=== PATIENT | male | born 1980 | race Caucasian/White ===

== ENCOUNTER 2017-07-01 17:54 | Observation (INO) | payer SELFPAY ==
[2017-07-01] MEDS ORDERED: Nitroglycerin 2% OINT* 1 GM PAK TOPICAL ONE (18:00)
[2017-07-01] MEDS ORDERED: Albuterol/Ipratropium NEB.SOL* Albuterol 2.5 MG/Ipratropium 0.5 MG 3 ML INH ONE (18:14)
[2017-07-01 18:32] LABS: Hematocrit 41 % (42-52); Hemoglobin 13.3 g/dl (14.0-18.0); Mean Corpuscular HGB Conc 33 g/dl (31-36); Mean Corpuscular Hemoglobin 28 pg (27-31); Mean Corpuscular Volume 85 fL (80-94); Mean Platelet Volume 8 um3 (7.4-10.4); Red Blood Count 4.81 10^6/ul (4.0-5.4); Red Cell Distribution Width 13 % (10.5-15); White Blood Count 13.4 10^3/ul (3.5-10.8)
[2017-07-01 18:45] LABS: Albumin 4.2 g/dL (3.2-5.2); BUN/Creatinine Ratio 16.9 (8-20); EGFR African American 148.7 (>60); EGFR Non-African American 115.6 (>60); Globulin 3.4 g/dL (2-4); Potassium 3.7 mmol/L (3.5-5.0); Total Bilirubin 0.4 mg/dL (0.2-1.0); Total Protein 7.6 g/dL (6.4-8.9)
[2017-07-01 18:46] LABS: Troponin I 0.01 ng/mL (<0.04)
--- NOTE | 2017-07-01 19:15 | RAD ---
INDICATION: Chest pain and leukocytosis COMPARISON: None TECHNIQUE: PA and lateral views of the chest were obtained. FINDINGS: The heart and mediastinum are normal in size and contour. The lungs are grossly clear. There is no evidence of large pleural effusion. Visualized bones are normal for the patient's age. There is no radiographic evidence of free air beneath the diaphragm IMPRESSION: No radiographic evidence of acute cardiopulmonary disease.
[2017-07-01] MEDS ORDERED: Ondansetron INJ* 2 MG/ML VIAL IV PRN (20:52)
[2017-07-01] MEDS ORDERED: Hydrochlorothiazide TAB* 25 MG PO ONE (20:54)
[2017-07-01] MEDS ORDERED: Nicotine Inhaler* 10 MG AMP INH PRN (20:55)
[2017-07-01] MEDS ORDERED: Nicotine PATCH 14 MG/24 HR* PATCH TRANSDERM ONE (20:55)
[2017-07-01] MEDS ORDERED: Nicotine Patch Removal NOTE FOLLOW UP SCH (21:00)
[2017-07-01] MEDS ORDERED: Enoxaparin(*) 40 MG/0.4 ML SYR SUBCUT SCH (21:00)
[2017-07-01] MEDS: Acetaminophen TAB* 325 MG PO PRN (22:08)
--- NOTE | 2017-07-01 22:42 | HP ---
ADMISSION HISTORY AND PHYSICAL: DATE OF ADMISSION: 07/01/17 PRIMARY CARE PROVIDER: None. HEALTHCARE PROXY: His girlfriend, Honey Linder. CODE STATUS: Full. SOURCE OF INFORMATION: History obtained from interview with the patient and review of past medical records. RELIABILITY: Good. CHIEF COMPLAINT: Shortness of breath, hypertension. HISTORY OF PRESENT ILLNESS: This is a 36-year-old man with past medical history of hypertension, which he has been recently following at home in the absence of any primary care provider who has been measuring his blood pressure at home, it is noted that systolics to be in the 170s. For this reason, he and his girlfriend have decided they would go to [facility] today for further evaluation. Prior to this at around 2 p.m. today while working on a hot water pump, he developed shortness of breath described as "hard to catch my breath" that lasted for approximately 1 to [address] to the hospital, he developed "quick sharp chest pain" that lasted for several seconds and then returned for several seconds. He states at its worse, it was approximately 4/10 and then resolved without intervention. He denied any nausea , vomiting, lightheadedness, although endorsed palpitations when he had the chest pain, which is described as nonpleuritic. The pain was left substernal, radiated down to lower chest wall. This is the first time he has experienced such symptoms. Upon arrival to [facility], he had an EKG, which was thought to represent an ST elevation NJ and was transferred from their institution to [facility] ED and was evaluated by Dr. Kenney, mobile pet groomer who did not think EKG represented an ST elevated myocardial infarction. Because of the patient's chest pain, ED asked hospitalist to consult. PAST MEDICAL HISTORY: High blood pressure, chronic lower back pain, left elbow fracture status post ORIF, previous diagnosis of ADHD, previous diagnosis of bipolar and depression, current tobacco abuse, and seasonal allergies. MEDICATIONS: No current medications. ALLERGIES: No known drug allergies. SOCIAL HISTORY: One-half pack per day for 18 years and has approximately 4 drinks of alcohol per year. Smokes marijuana 2 to 3 times per week. He is employed as a cook at [employer]. FAMILY HISTORY: Mother had an NJ at age 42 in addition to hypertension. Father with liver cancer. REVIEW OF SYSTEMS: As per HPI including episode of shortness of breath and fleeting chest pain associated with palpitations. Otherwise, all other systems negative. PHYSICAL EXAMINATION GENERAL: Lying flat in bed, interactive, pleasant, no apparent distress. VITAL SIGNS: In the emergency room, highest blood pressure measured 157/105, although he had a nitroglycerin ointment on, pulse 51 to 57, respiratory rate of 16, 97% on room air, T-max 97.9. HEENT: Oropharynx is clear. He has poor dentition. Moist mucous membranes. Sclerae are anicteric. NECK: He has non-elevated JVD. No supraclavicular or cervical lymphadenopathy. LUNGS: Have decreased breath sounds throughout with no adventitious lung sounds. HEART: Has regular rate and rhythm without murmurs, rubs, or gallops. ABDOMEN: Soft, nontender, nondistended. EXTREMITIES: Warm and well perfused without clubbing, cyanosis, or edema. NEURO: He is alert and oriented x3. His cranial nerves II through XII are intact. He has no apparent anxiety, agitation, or depression. DIAGNOSTIC STUDIES/LAB DATA: Reviewed. Troponin I 0.01. Troponin at [place] 0.02. Lactic acid 0.7. AST 14, ALT 11, alk phos 72. D-dimer less than 200. White blood cell count 13.4, hemoglobin 13.3, platelets 316, neutrophils 58%, eosinophils 8%. Data reviewed. Chest x-ray, impression: No active cardiopulmonary disease. EKG, sinus bradycardia, ventricular rate of 52, borderline right axis, QRS approximately 0.12 milliseconds, normal R-wave progression, T-wave flattening in II with inversions in aVF. ASSESSMENT AND PLAN: This is a 36-year-old man with past medical history of hypertension, tobacco abuse, little contact with medical care, presenting to [place] today with concerns of high blood pressure with coarse proceeded by episode of brief shortness of breath and fleeting chest pain with concern at their facility for ST elevated myocardial infarction, transferred to [facility] ED with consultation with mobile pet groomer, disagreed with diagnosis of ST elevated myocardial infarction, now chest pain free. 1. Chest pain, appear to be in significant aspect of the patient's presentation. His ZANA score is 0, although he does have T-wave inversion in 2 leads on EKG. Repeat 2 additional troponins this evening. We will repeat EKG in the morning. A decision for an outpatient stress can be made, although at this point his risk factors include high blood pressure, tobacco use, and a family history. Monitored on telemetry. Check lipids in the morning. Add on hemoglobin A1c to the ED labs. 2. Hypertension. The patient is not reversed, is taking medications per dose hydrochlorothiazide 25 mg this evening and start hydrochlorothiazide 25 mg in the morning. Monitor and adjust discharge medications based on response. 3. Tobacco abuse. Smoking cessation counseling given at length. The patient was precontemplated with medium dose nicotine patch with nicotine inhaler. 4. Deep vein thrombosis prophylaxis. Rip. [id number]/CPS #: [id number] PAMELA
[2017-07-02] MEDS: Acetaminophen TAB* 325 MG PO PRN (03:21)
[2017-07-02 05:35] LABS: HDL Cholesterol 22.5 mg/dL
[2017-07-02 08:12] VITALS: BP 134/94
[2017-07-02] MEDS ORDERED: Hydrochlorothiazide TAB* 25 MG PO SCH (09:00)
--- NOTE | 2017-07-02 13:27 | ED ---
Jose Blanchard Nilda, scribed for Xu Warren MD on 07/01/17 at 1857 . HPI Chest Pain - HPI Summary HPI Summary: This patient is a 36 year old M [facility] girlfriend with a chief complaint of waxing and waning sharp left-sided chest pain while driving home earlier tonight. The patient rates the pain 2/10 in severity. Symptoms aggravated by deep inspiration. Symptoms alleviated by NTG and morphine. Patient reports LOU, left arm numbness, lower back pain, LUQ pain , and cough (with deep inspiration). Patient denies wheezing. He is getting over a recent sickness (cold). He smokes (1ppd) and rarely drinks alcohol. - History of Current Complaint Chief Complaint: EDChestPainROMI Time Seen by Provider: 07/01/17 18:00 Hx Obtained From: Patient Onset/Duration: Started Hours Ago Timing: Constant - waxing and waving Current Severity: Mild Pain Intensity: 2 Pain Scale Used: 0-10 Numeric Chest Pain Location: Left Lateral Chest Pain Radiates: No Character: Sharp/Stabbing Aggravating Factor(s): Deep Breaths Alleviating Factor(s): NTG 123, Other: - Morphine Associated Signs and Symptoms: Positive: Other: - LOU, left arm numbness, lower back pain, LUQ pain, and cough (with deep inspiration). Patient denies wheezing. - Allergy/Home Medications Allergies/Adverse Reactions: Allergies Allergy/AdvReac Type Severity Reaction Status Date / Time Shellfish Allergy Allergy GI Upset Verified 07/01/17 18:00 PMH/Surg Hx/FS Hx/Imm Hx Respiratory History: Denies: Hx Asthma, Hx Chronic Obstructive Pulmonary Disease (COPD) Infectious Disease History: No Infectious Disease History: Denies: Traveled Outside the [place] in Last 30 Days - Family History Known Family History: Positive: Hypertension, Diabetes - Social History Alcohol Use: Occasionally Substance Use Type: Reports: None Smoking Status (MU): Light Every Day Tobacco Smoker Review of Systems Negative: Fever, Chills Negative: Erythema Negative: Sore Throat Positive: Chest Pain Positive: Cough, Other - LOU; negative wheezing. Negative: Shortness Of Breath Positive: Abdominal Pain - LUQ pain. Negative: Vomiting, Nausea Negative: dysuria, hematuria Positive: Other - lower back pain. Negative: Myalgia, Edema Negative: Rash Neurological: Other - negative dizziness Positive: Numbness - left arm numbness All Other Systems Reviewed And Are Negative: Yes Physical Exam - Summary Physical Exam Summary: Constitutional: Well-developed, Well-nourished, Alert. (-) Distressed Skin: Warm, Dry HENT: Normocephalic; Atraumatic Eyes: Conjunctiva normal Neck: Musculoskeletal ROM normal neck. (-) JVD, (-) Stridor, (-) Tracheal deviation Cardio: Rhythm regular, rate normal, Heart sounds normal; Intact distal pulses; The pedal pulses are 2+ and symmetric. Radial pulses are 2+ and symmetric. (-) Murmur Pulmonary/Chest wall: Extremely diffuse breath sounds; point tenderness over left 4th rib midclavicular Abd: Soft, (-) Tenderness, (-) Distension, (-) Guarding, (-) Rebound Musculoskeletal: (-) Edema Lymph: (-) Cervical adenopathy Neuro: Alert, Oriented x3 Psych: Mood and affect Normal Triage Information Reviewed: Yes Vital Signs On Initial Exam: Initial Vitals Temp Pulse Resp BP Pulse Ox 97.9 F 57 16 157/105 98 07/01/17 17:58 07/01/17 17:58 07/01/17 17:58 07/01/17 17:58 07/01/17 17:58 Vital Signs Reviewed: Yes - Tiger Coma Scale Coma Scale Total: 15 Diagnostics - Vital Signs Vital Signs Temp Pulse Resp BP Pulse Ox 07/01/17 18:20 51 97 07/01/17 18:05 97 07/01/17 18:03 58 16 98 07/01/17 17:58 97.9 F 57 16 157/105 98 - Laboratory Lab Results: Lab Results 07/01/17 07/01/17 07/01/17 Range/Units 18:08 18:08 18:08 WBC 13.4 H (3.5-10.8) 10^3/ul RBC 4.81 (4.0-5.4) 10^6/ul Hgb 13.3 L (14.0-18.0) g/dl Hct 41 L (42-52) % MCV 85 (80-94) fL MCH 28 (27-31) pg MCHC 33 (31-36) g/dl RDW 13 (10.5-15) % Plt Count 316 (150-450) 10^3/ul MPV 8 (7.4-10.4) um3 Neut % (Auto) 58.2 (38-83) % Lymph % (Auto) 25.8 (25-47) % Garrard % (Auto) 5.8 (1-9) % Eos % (Auto) 8.3 H (0-6) % Baso % (Auto) 1.9 (0-2) % Absolute Neuts (auto) 7.8 H (1.5-7.7) 10^3/ul Absolute Lymphs (auto) 3.5 (1.0-4.8) 10^3/ul Absolute Monos (auto) 0.8 (0-0.8) 10^3/ul Absolute Eos (auto) 1.1 H (0-0.6) 10^3/ul Absolute Basos (auto) 0.3 H (0-0.2) 10^3/ul Absolute Nucleated RBC 0 10^3/ul Nucleated RBC % 0 D-Dimer, Quantitative (Less Than 230) ng/mL Sodium 137 (133-145) mmol/L Potassium 3.7 (3.5-5.0) mmol/L Chloride 107 (101-111) mmol/L Carbon Dioxide 24 (22-32) mmol/L Anion Gap 6 (2-11) mmol/L BUN 13 (6-24) mg/dL Creatinine 0.77 (0.67-1.17) mg/dL Est GFR ( Amer) 148.7 (>60) Est GFR (Non-Af Amer) 115.6 (>60) BUN/Creatinine Ratio 16.9 (8-20) Glucose 93 (70-100) mg/dL Lactic Acid 0.7 (0.5-2.0) mmol/L Calcium 9.0 (8.6-10.3) mg/dL Total Bilirubin 0.40 (0.2-1.0) mg/dL AST 14 (13-39) U/L ALT 11 (7-52) U/L Alkaline Phosphatase 72 (34-104) U/L Troponin I 0.01 (<0.04) ng/mL Total Protein 7.6 (6.4-8.9) g/dL Albumin 4.2 (3.2-5.2) g/dL Globulin 3.4 (2-4) g/dL Albumin/Globulin Ratio 1.2 (1-3) 07/01/17 Range/Units 18:08 WBC (3.5-10.8) 10^3/ul RBC (4.0-5.4) 10^6/ul Hgb (14.0-18.0) g/dl Hct (42-52) % MCV (80-94) fL MCH (27-31) pg MCHC (31-36) g/dl RDW (10.5-15) % Plt Count (150-450) 10^3/ul MPV (7.4-10.4) um3 Neut % (Auto) (38-83) % Lymph % (Auto) (25-47) % Garrard % (Auto) (1-9) % Eos % (Auto) (0-6) % Baso % (Auto) (0-2) % Absolute Neuts (auto) (1.5-7.7) 10^3/ul Absolute Lymphs (auto) (1.0-4.8) 10^3/ul Absolute Monos (auto) (0-0.8) 10^3/ul Absolute Eos (auto) (0-0.6) 10^3/ul Absolute Basos (auto) (0-0.2) 10^3/ul Absolute Nucleated RBC 10^3/ul Nucleated RBC % D-Dimer, Quantitative < 200 (Less Than 230) ng/mL Sodium (133-145) mmol/L Potassium (3.5-5.0) mmol/L Chloride (101-111) mmol/L Carbon Dioxide (22-32) mmol/L Anion Gap (2-11) mmol/L BUN (6-24) mg/dL Creatinine (0.67-1.17) mg/dL Est GFR ( Amer) (>60) Est GFR (Non-Af Amer) (>60) BUN/Creatinine Ratio (8-20) Glucose (70-100) mg/dL Lactic Acid (0.5-2.0) mmol/L Calcium (8.6-10.3) mg/dL Total Bilirubin (0.2-1.0) mg/dL AST (13-39) U/L ALT (7-52) U/L Alkaline Phosphatase (34-104) U/L Troponin I (<0.04) ng/mL Total Protein (6.4-8.9) g/dL Albumin (3.2-5.2) g/dL Globulin (2-4) g/dL Albumin/Globulin Ratio (1-3) Result Diagrams: 07/01/17 18:08 07/01/17 18:08 Lab Statement: Any lab studies that have been ordered have been reviewed, and results considered in the medical decision making process. - Radiology CXR Radiology Interpretation Completed By: Radiologist - No radiographic evidence of acute cardiopulmonary disease. ED physician reviewed report and agrees. Chest Pain Course/Dx - Course Assessment/Plan: This patient is a 36 year old M [facility] by girlfriend with a chief complaint of waxing and waning sharp left -sided chest pain while driving home earlier tonight. The patient rates the pain 2/10 in severity. Symptoms aggravated by deep inspiration. Symptoms alleviated by NTG and morphine. Patient reports LOU, left arm numbness, lower back pain, LUQ pain, and cough (with deep inspiration). Patient denies wheezing. He is getting over a recent sickness (cold). He smokes (1ppd) and rarely drinks alcohol. CXR reveals no radiographic evidence of acute cardiopulmonary disease. ED physician reviewed report and agrees. [[id number]] Dr. Frazier (Hospitalist) will admit patient. - Diagnoses Provider Diagnoses: Hypertensive urgency, Chest pain, unspecified - Provider Notifications Discussed Care Of Patient With: Blanco Frazier - Hospitalist Time Discussed With Above Provider: 19:56 Instructed by Provider To: Admit As Inpatient Discharge - Discharge Plan Condition: Stable Disposition: ADMITTED TO [facility] The documentation as recorded by the Jose san Nilda accurately reflects the service I personally performed and the decisions made by , Xu Warren MD.
--- NOTE | 2017-07-02 22:24 | DS ---
DISCHARGE SUMMARY: DATE OF ADMISSION: 07/01/17 DATE OF DISCHARGE: 07/02/17 PRINCIPAL DIAGNOSIS: Hypertensive urgency. SECONDARY DIAGNOSES: 1. New diagnosis of hypertension. 2. Tobacco abuse. REVIEW OF SYSTEMS: On 07/02/17, negative for chest pain, shortness of breath, palpitations, nausea, vomiting, diaphoresis, lightheadedness, syncope, dyspnea on exertion, or chest pain on exertion. Remainder of the 14-point review of systems is negative as well. PHYSICAL EXAMINATION: On 07/02/17, vitals, temperature 99.3 degrees, heart rate 52, respiratory rate 16, pulse ox 95% on room air, and blood pressure 134/ 94. General: Alert, well appearing, no distress. HEENT: Poor dentition. Pupils equal, round, reactive to light. No nystagmus. Neck: No JVP. No cervical adenopathy. Chest: Nontender to palpation. Regular rate and rhythm. No murmurs. PMI nondisplaced. Lungs: Clear bilaterally. Abdomen: Soft, nontender, nondistended. Extremities: No edema. No ecchymosis. Pulses 2+ throughout. LABORATORY DATA: Troponin 0.01, 0.01, and 0.02. Hemoglobin A1c 5.6. Cholesterol 116. Triglycerides 103. LDL 73, HDL 22.5. IMAGING: EKG, sinus bradycardia at 53, normal axis, normal IL and normal QTC, QRS is 120, no chamber hypertrophy, T wave inversion in V4, T wave flattening in V5, no other ST changes. HOSPITAL COURSE BY PROBLEM: 1. Hypertensive urgency. Mr. Cardozo had been monitoring his blood pressure at home without care of a PCP and had noted it to be high for the past several weeks to months. On the day of admission, he again noted the systolic blood pressure to be in the 170s and it was associated with some shortness of breath. Then, on the way to the emergency department, he noted sharp chest pressure that resolved on its own. The chest pressure was atypical. His troponins were negative x3 and his EKG had nonspecific intraventricular conduction delay. His hypertensive urgency was treated with p.o. meds only and his blood pressure came in to goal with HCTZ 25 mg daily. He is being discharged on HCTZ 25 mg daily, which he states he does have money for and Social Work was consulted to help him apply for insurance so that he can follow up with a PCP. This was explained and reinforced to him and he and his girlfriend agreed to ensure PCP followup to monitor his blood pressure and refill his medications. 2. Chest pain. The pain was atypical and associated with elevated blood pressure. His risk factors for coronary artery disease now include hypertension , tobacco abuse, and a questionable family history, he believes his mom had a "heart problem" in her 40s, but he is not sure what it was and he has no family history otherwise of early cardiac disease. I discussed his risk factors with him at length and recommended an inpatient stress test since he does not have health insurance; however, he refused this test. I emphasized that any chest pain should prompt him to come immediately back to the emergency department. He and his girlfriend expressed understanding. 3. Tobacco abuse. I counselled Mr. Cardozo extensively on tobacco cessation. He and his girlfriend both expressed motivation to quit and they were provided the [facility] Quitline. They declined nicotine patches or inhalers. TIME SPENT: Greater than 60 minutes were spent on this discharge, greater than 30 minutes were spent [id number] with the patient and his girlfriend. [id number]/[facility] #: [id number] PAMELA
== END 2017-07-02 11:22 | disposition home or self-care (01) ==
LOC: ED 17:54 → MEDTELE 20:52
PROVIDERS: ADMIT Internal Medicine; ATTEND Internal Medicine
DX: I16.0 Hypertensive urgency (principal); R07.89 Other chest pain; R10.12 Left upper quadrant pain; F17.210 Nicotine dependence, cigarettes, uncomplicated
CPT/HCPCS: 36415; 71020; 80053; 80061; 83036; 83605; 84484; 85025; 85379; 87040; 93005; 94640; 94760; 96372; 96374; 99285; A9270-GY; G0378; J1650; J2405